=== PATIENT | female | born 1990 | race Caucasian/White ===

== ENCOUNTER → 2021-09-07 | Day surgery (SDC) | payer MEDICAID, OTHER ==
[~2021-09-07] MED LIST: Acetaminophen/HYDROcodone 325-5 MG Tab PO SCH; Bupivacaine 0.25% 10 ML SDV ONE; Dexamethasone 4 MG/ML 5 ML MDV ONE; Dexmedetomidine 200 MCG/2 ML SDV ONE; EPINEPHrine 1 MG/ML 30 ML MDV IRR SCH; HYDROmorphone 0.5 MG/0.5 ML Syringe IVPUSH PRN; Ketorolac 30 MG/ML SDV ONE; Lactated Ringers 1,000 ML IV SCH; Lidocaine 1% 4 ML ONE; Lidocaine 1%/Sod Bicarbonate in NS 8.4% 1 ML Syringe IDERM PRN; Midazolam 1 MG/ML 2 ML SDV ONE; Morphine PF 10 MG/10 ML SDV ONE; Ondansetron 4 MG/2 ML SDV IVPUSH PRN; Ondansetron 4 MG/2 ML SDV ONE; Oxytocin 10 Units/1 ML SDV ONE; Propofol 200 MG/20 ML SDV ONE; Sodium Chloride 0.9% 10 ML Syringe FLUSH PRN; Sodium Chloride 0.9% 10 ML Syringe FLUSH SCH; ceFAZolin 2 GM Vial ONE; fentaNYL 100 MCG/2 ML SDV IVPUSH PRN; fentaNYL 100 MCG/2 ML SDV ONE
== END | disposition home or self-care (01) ==
LOC: JD.SDS 09:50
PROVIDERS: ATTEND Orthopaedic Surgery
DX: M67.51 Plica syndrome, right knee (principal); G89.29 Other chronic pain; F90.2 Attention-deficit hyperactivity disorder, combined type; D75.1 Secondary polycythemia; M25.551 Pain in right hip; M25.552 Pain in left hip; F41.9 Anxiety disorder, unspecified; F32.A Depression, unspecified; G43.909 Migraine, unspecified, not intractable, without status migrainosus; F17.290 Nicotine dependence, other tobacco product, uncomplicated; J45.909 Unspecified asthma, uncomplicated; Z98.890 Other specified postprocedural states; Z79.899 Other long term (current) drug therapy
CPT/HCPCS: 29875; A9270; J0690; J1100; J1885; J2250; J2405; J2704; J3010; J3490; J7120; 01400; J2274; J2590

== ENCOUNTER 2021-10-04 23:30 | Emergency (ER) | payer MEDICAID ==
[2021-10-05] MEDS ORDERED: Ondansetron 4 MG/2 ML SDV IVPUSH ONE (01:19)
[2021-10-05] MEDS ORDERED: Benztropine 1 MG Tab PO ONE (01:19)
[2021-10-05] MEDS ORDERED: Haloperidol Lactate 5 MG/ML SDV IM ONE (01:19)
[2021-10-05] MEDS ORDERED: Sodium Chloride 0.9% 1,000 ML IV ONE (01:19)
== END 2021-10-05 02:27 | disposition home or self-care (01) ==
LOC: JD.ED 23:30
DX: G43.009 Migraine without aura, not intractable, without status migrainosus (principal); J45.909 Unspecified asthma, uncomplicated; Z79.899 Other long term (current) drug therapy; Z79.82 Long term (current) use of aspirin
CPT/HCPCS: 70450; 96361; 96372; 96374; 99284; A9270; J1630; J2405; J7030; 99283

== ENCOUNTER 2021-10-26 09:31 | Day surgery (SDC) | payer MEDICAID ==
[~2021-10-26 09:31] MED LIST changes: -Acetaminophen/HYDROcodone 325-5 MG Tab PO SCH; -Bupivacaine 0.25% 10 ML SDV ONE; -Dexamethasone 4 MG/ML 5 ML MDV ONE; -Dexmedetomidine 200 MCG/2 ML SDV ONE; -HYDROmorphone 0.5 MG/0.5 ML Syringe IVPUSH PRN; -Ketorolac 30 MG/ML SDV ONE; +Lidocaine 1% 2 ML ONE; -Lidocaine 1% 4 ML ONE; -Morphine PF 10 MG/10 ML SDV ONE; -Ondansetron 4 MG/2 ML SDV IVPUSH PRN; -Ondansetron 4 MG/2 ML SDV ONE; -Oxytocin 10 Units/1 ML SDV ONE; -ceFAZolin 2 GM Vial ONE; -fentaNYL 100 MCG/2 ML SDV IVPUSH PRN
[2021-10-26] MEDS ORDERED: HYDROmorphone 0.5 MG/0.5 ML Syringe IVPUSH PRN (09:37)
[2021-10-26] MEDS ORDERED: fentaNYL 100 MCG/2 ML SDV IVPUSH PRN (09:37)
[2021-10-26] MEDS ORDERED: Ondansetron 4 MG/2 ML SDV IVPUSH PRN (09:37)
[2021-10-26] MEDS ORDERED: ceFAZolin 2 GM Vial ONE (09:57)
[2021-10-26] MEDS ORDERED: Bupivacaine 0.25% 10 ML SDV ONE (10:17)
[2021-10-26] MEDS ORDERED: Ondansetron 4 MG/2 ML SDV ONE (11:14)
[2021-10-26] MEDS ORDERED: Acetaminophen/HYDROcodone 325-5 MG Tab PO ONE ×2 (13:00→14:00)
== END 2021-10-26 13:47 | disposition home or self-care (01) ==
LOC: JD.SDS 09:31
PROVIDERS: ATTEND Orthopaedic Surgery
DX: M67.52 Plica syndrome, left knee (principal); D75.1 Secondary polycythemia; F41.9 Anxiety disorder, unspecified; F32.A Depression, unspecified; G43.909 Migraine, unspecified, not intractable, without status migrainosus; M19.90 Unspecified osteoarthritis, unspecified site; M25.551 Pain in right hip; M25.552 Pain in left hip; G89.29 Other chronic pain; F17.200 Nicotine dependence, unspecified, uncomplicated; Z79.899 Other long term (current) drug therapy; Z79.51 Long term (current) use of inhaled steroids; Z79.83 Long term (current) use of bisphosphonates; Z98.890 Other specified postprocedural states
CPT/HCPCS: 29875; 81025; A9270; J0171; J0690; J2250; J2405; J2704; J3010; J3490; J7120; 01400

== ENCOUNTER 2022-02-05 04:52 | Emergency (ER) | payer MEDICAID ==
[2022-02-05] MEDS ORDERED: Bupivacaine 0.5% 10 ML SDV INJECT ONE (05:33)
[2022-02-05] MEDS ORDERED: HYDROmorphone 0.5 MG/0.5 ML Syringe IVPUSH ONE (05:33)
[2022-02-05] MEDS ORDERED: Lidocaine 1% with EPINEPHrine 1:100,000 10 ML MDV INJECT ONE (05:33)
[2022-02-05] MEDS ORDERED: Diphtheria,Pertussis(Acell),Tetanus Vaccine 0.5 ML Syringe IM ONE (05:34)
[2022-02-05] MEDS ORDERED: Amoxicillin/Clavulanate K 875-125 MG Tab PO STA (06:48)
[2022-02-05] MEDS ORDERED: Acetaminophen 325 MG Tab PO ONE (07:19)
== END 2022-02-05 07:40 | disposition home or self-care (01) ==
LOC: JD.ED 04:52
DX: S61.452A Open bite of left hand, initial encounter (principal); J45.909 Unspecified asthma, uncomplicated; Z79.899 Other long term (current) drug therapy; Z23 Encounter for immunization; W54.0XXA Bitten by dog, initial encounter
CPT/HCPCS: 12001; 64450; 90471; 90715; 96374; 99284; A9270; J1170; J3490